=== PATIENT | female | born 1990 | race Caucasian/White ===

== ENCOUNTER → 2020-04-17 | Outpatient (REF) | payer OTHER ==
[2020-04-25 15:24] LABS: CHLAMYDIA DNA AMPLIFICATION NEGATIVE (NEGATIVE); GC DNA AMPLIFICATION NEGATIVE (NEGATIVE)
== END ==
LOC: M SFHCWAGY 10:29
PROVIDERS: ATTEND Nurse Practitioner Family
DX: Z12.4 Encounter for screening for malignant neoplasm of cervix (principal)
CPT/HCPCS: 87624; 87661; G0123; G0463

== ENCOUNTER → 2020-05-16 | Outpatient (CLI) | payer OTHER | LOC: M PLALAB 14:17 | PROVIDERS: ATTEND Nurse Practitioner Women's Health | DX: Z11.4 Encounter for screening for human immunodeficiency virus [HIV] (principal) ==

== ENCOUNTER 2020-08-15 13:18 | Emergency (ER) | payer OTHER ==
[~2020-08-15] VITALS: Ht 170.2 cm; Wt 67.9 kg
[2020-08-15] MEDS ORDERED: KETOROLAC TROMETHAMINE 10 MG TAB PO ONE (13:45)
--- NOTE | 2020-08-15 14:28 | REP ---
INDICATION: fell/pain. COMPARISON: None. TECHNIQUE: Three views. FINDINGS: Mineralization is normal. There is no fracture or dislocation. The sacroiliac articulations unremarkable. The sacral a ala and foramen are unremarkable. IMPRESSION: Essentially negative sacrum and coccyx. No fractures are identified. Symptoms persist or worsen consider CT or MRI. <Electronically signed by Mike Mijares > 08/15/20 [id number]
[2020-08-15] MEDS ORDERED: IBUP80TA PO (14:53)
[2020-08-15 15:16] VITALS: BP 102/51
== END 2020-08-15 15:17 | disposition home or self-care (01) ==
LOC: M ED 13:18
DX: S30.810A Abrasion of lower back and pelvis, initial encounter (principal); W10.8XXA Fall (on) (from) other stairs and steps, initial encounter; Y92.89 Other specified places as the place of occurrence of the external cause

== ENCOUNTER → 2020-12-17 | Outpatient (REF) | payer OTHER ==
[~2020-12-17] MED LIST: IBUP80TA PO
[2020-12-17 20:28] LABS: CHLAMYDIA DNA AMPLIFICATION NEGATIVE (NEGATIVE); GC DNA AMPLIFICATION NEGATIVE (NEGATIVE)
== END ==
LOC: M SFHCWAGY 17:00
PROVIDERS: ATTEND Nurse Practitioner Women's Health
DX: Z11.3 Encounter for screening for infections with a predominantly sexual mode of transmission (principal)
CPT/HCPCS: 87210; 87491; 87591; G0463

== ENCOUNTER → 2021-01-29 | Outpatient (CLI) | payer OTHER ==
--- NOTE | 2021-01-29 10:41 | REP ---
INDICATION: SHORTNESS OF BREATH COMPARISON: None. TECHNIQUE: PA and lateral. FINDINGS: The mediastinum and cardiac silhouette are normal. The lung strickland are clear and without acute consolidation, effusion, or pneumothorax. The skeletal structures are intact and normal. IMPRESSION: No acute cardiopulmonary process. <Electronically signed by Sunny Isidro > 01/29/21 [id number]
== END ==
LOC: M WUC 10:13
PROVIDERS: ATTEND Physician Assistant
DX: R06.02 Shortness of breath (principal)

== ENCOUNTER → 2021-02-02 | Outpatient (CLI) | payer OTHER | LOC: M LAB 10:06 | PROVIDERS: ATTEND Physician Assistant | DX: Z01.84 Encounter for antibody response examination (principal) ==

== ENCOUNTER → 2021-04-13 | Outpatient (CLI) | payer OTHER | LOC: M WHC 10:39 | PROVIDERS: ATTEND Obstetrics & Gynecology | DX: Z98.82 Breast implant status (principal) ==

== ENCOUNTER 2022-06-19 11:20 | Emergency (ER) | payer OTHER ==
[~2022-06-19] VITALS: Ht 170.2 cm; Wt 77.6 kg
[2022-06-19] MEDS ORDERED: AMOX875T2 PO (13:58)
[2022-06-19 14:05] VITALS: BP 122/65
== END 2022-06-19 14:05 | disposition home or self-care (01) ==
LOC: M ED 11:20
DX: S61.442A Puncture wound with foreign body of left hand, initial encounter (principal); W55.01XA Bitten by cat, initial encounter; F90.9 Attention-deficit hyperactivity disorder, unspecified type; F10.10 Alcohol abuse, uncomplicated; Z91.018 Allergy to other foods; Y92.9 Unspecified place or not applicable; Y93.K9 Activity, other involving animal care; Y99.0 Civilian activity done for income or pay

== ENCOUNTER → 2023-06-13 | Outpatient (CLI) | payer OTHER ==
[~2023-06-13] MED LIST changes: +AMOX875T2 PO
[2023-06-13 11:05] LABS: BASO % 0.7 % (0.0-1.0); EOS # 0.1 10^3/uL (0.0-0.5); EOS % 1.6 % (0.0-3.0); HEMATOCRIT 40.9 % (36.0-47.0); HEMOGLOBIN 13.3 g/dl (12.0-15.5); LYMPH # 1.4 10^3/uL (1.5-5.0); LYMPH % 31.7 % (24.0-44.0); MEAN CORPUSCULAR HEMOGLOBIN 31.2 pg (27.0-33.0); MEAN CORPUSCULAR HGB CONC 32.5 g/dl (32.0-36.5); MONO # 0.3 10^3/uL (0.0-0.8); MONO % 6.5 % (2.0-8.0); NEUTROPHILS # 2.6 10^3/uL (1.5-8.5); NEUTROPHILS % 59.3 % (36.0-66.0); PLATELET COUNT, AUTOMATED 211 10^3/uL (150-450); RED BLOOD COUNT 4.26 10^6/uL (4.00-5.40); WHITE BLOOD COUNT 4.3 10^3/uL (4.0-10.0)
[2023-06-13 11:39] LABS: ALKALINE PHOSPHATASE 71 U/L (46-116); ALT/SGPT 14 U/L (7.0-40); AST/SGOT 20 U/L (<34); BILIRUBIN,TOTAL 0.5 MG/DL (0.3-1.2); BLOOD UREA NITROGEN 13 MG/DL (9-23); CALCIUM LEVEL 8.9 MG/DL (8.5-10.1); CARBON DIOXIDE LEVEL 31 MMOL/L (20-31); CHLORIDE LEVEL 109 MMOL/L (98-107); CREATININE FOR GFR 0.64 MG/DL (0.55-1.30); GLOMERULAR FILTRATION RATE > 60.0 (>60); GLUCOSE, FASTING 94 MG/DL (60-100); IRON (FE) 114 UG/DL (50-170); PERCENT SATURATION 33.7 % (13.2-45.0); POTASSIUM SERUM 4.7 MMOL/L (3.5-5.1); SODIUM LEVEL 144 MMOL/L (136-145); TOTAL IRON BINDING CAPACITY 338 UG/DL (250-425); TOTAL PROTEIN 6.9 G/DL (5.7-8.2)
[2023-06-13 11:40] LABS: FERRITIN 15.9 NG/ML (7.3-270.7); FOLLICLE STIMULATING HORMONE 6.8 mIU/ML; THYROID STIMULATING HORMONE 0.996 uIU/ML (0.55-4.78)
[2023-06-13 11:41] LABS: ESTRADIOL 78.2 PG/ML; FREE T4 1.15 NG/DL (0.89-1.76); LUTEINIZING HORMONE 5.8 mIU/ML
[2023-06-14 16:08] LABS: TESTOSTERONE FREE (DIRECT) 1.6 pg/mL (0.0-4.2)
== END ==
LOC: M LAB 10:34
PROVIDERS: ATTEND Physician Assistant
DX: N92.0 Excessive and frequent menstruation with regular cycle (principal)

== ENCOUNTER → 2023-10-25 | Outpatient (CLI) | payer OTHER | LOC: M WHC 13:24 | PROVIDERS: ATTEND Nurse Practitioner Family | DX: N92.1 Excessive and frequent menstruation with irregular cycle (principal); N28.1 Cyst of kidney, acquired ==

== ENCOUNTER → 2025-07-16 | Outpatient (CLI) | payer OTHER | LOC: M RAD 09:14 | PROVIDERS: ATTEND Otolaryngology | DX: H66.92 Otitis media, unspecified, left ear (principal) ==